=== PATIENT | female | born 1940 | race Asian ===

== ENCOUNTER 2017-04-02 16:36 | Inpatient (IN) | payer MEDICARE, OTHER ==
[~2017-04-02] VITALS: Ht 167.6 cm; Wt 51.3 kg
[~2017-04-02 16:36] MED LIST: ANAS1TAB7 PO; APIX2.5T PO; BUME1TAB17 PO; CALC-590 PO; DIGO-44 PO; FAMO20 PO; FURO20TA4 PO; METO50 PO; MULT-1259 PO; SIMV20TA6 PO
[2017-04-02 19:00] VITALS: BP 138/65
[2017-04-02] MEDS ORDERED: DOCUSATE SODIUM 283 MG/5 ML MINI-ENEMA PR PRN (20:00)
[2017-04-02] MEDS ORDERED: ACETAMINOPHEN 325 MG TABLET PO PRN (20:00)
[2017-04-02] MEDS ORDERED: IPRATROPIUM BROMIDE 0.5 MG/2.5 ML NEB SOLUTION NEB PRN (20:00)
[2017-04-02] MEDS ORDERED: ZOLPIDEM TARTRATE 5 MG TABLET PO PRN (20:00)
[2017-04-02] MEDS ORDERED: MAGNESIUM HYDROXIDE SUSPENSION 30 ML UDCUP PO PRN (20:00)
[2017-04-02] MEDS ORDERED: HYDROCODONE/ACETAMINOPHEN 5-325 MG TABLET PO PRN (20:00)
[2017-04-02] MEDS ORDERED: HEPARIN SODIUM,PORCINE 5,000 UNITS/ML VIAL IVP ONE (20:15)
[2017-04-02] MEDS ORDERED: HEPARIN SODIUM,PORCINE 5,000 UNITS/ML VIAL IVP PRN ×2 (20:15)
[2017-04-02] MEDS: DOCUSATE SODIUM 250 MG CAPSULE PO SCH (21:14)
[2017-04-02] MEDS: CALCIUM CARBONATE 500 MG CHEWABLE TABLET CHEW SCH (21:14)
[2017-04-02] MEDS: MULTIVITAMINS, THERAPEUTIC TABLET PO SCH (21:14)
[2017-04-02] MEDS: FAMOTIDINE 20 MG TABLET PO SCH (21:14)
[2017-04-02] MEDS: SIMVASTATIN 20 MG TABLET PO SCH (21:14)
[2017-04-02] MEDS: SENNA 187 MG TABLET PO SCH (21:21)
[2017-04-02 23:20] VITALS: BP 145/76
[2017-04-03] MEDS: HEPARIN SODIUM 25000 UNITS/D5W 250 ML IV PRN ×3 (00:35→10:37)
[2017-04-03 06:44] LABS: BASOPHILS # (AUTO) 0.03 K/uL (0.00-0.20); BASOPHILS % (AUTO) 0.6 % (0.0-2.0); EOSINOPHILS # (AUTO) 0.11 K/uL (0.00-0.70); EOSINOPHILS % (AUTO) 2.04 % (1.0-6.0); HEMATOCRIT 40.2 % (36-46); HEMOGLOBIN 13.2 g/dL (12.0-16.0); LYMPHOCYTES # (AUTO) 0.9 K/uL (1.0-4.8); LYMPHOCYTES % (AUTO) 16.8 % (22.0-44.0); MEAN CORPUSCULAR HEMOGLOBIN 31.6 pg (26.0-34.0); MEAN CORPUSCULAR HGB CONC 32.8 G/dL (31.0-37.0); MEAN CORPUSCULAR VOLUME 97 fL (80-100); MONOCYTES # (AUTO) 0.4 K/uL (0.1-1.0); MONOCYTES % (AUTO) 6.4 % (2.0-9.0); NEUTROPHILS % (AUTO) 74.2 % (40.0-70.0); PLATELET COUNT (AUTO) 103 K/uL (150-450); RED BLOOD CELL COUNT(AUTO) 4.16 MIL/uL (4.00-5.20); RED CELL DISTRIBUTION WIDTH 16.3 % (11.5-14.5)
[2017-04-03 07:02] LABS: ALANINE AMINOTRANSFERASE 28 U/L (12-78); ALBUMIN 2.1 g/dL (3.4-5.0); ALKALINE PHOSPHATASE 162 U/L (46-116); ANION GAP 2 mmol/L (8-16); ASPARTATE AMINOTRANSFERASE 36 U/L (15-37); BILIRUBIN,TOTAL 1.3 mg/dL (0.1-1.0); CALCIUM, TOTAL 8.7 mg/dL (8.8-10.5); CARBON DIOXIDE 34 mmol/L (22-29); CHLORIDE 107 mmol/L (98-107); CREATININE 0.78 mg/dL (0.60-1.30); GLOMERULAR FILTR. RATE CALC > 60 mL/min (>60); GLUCOSE,RANDOM 90 mg/dL (70-110); POTASSIUM 4.3 mmol/L (3.5-5.1); SODIUM SERUM 143 mmol/L (136-145); UREA NITROGEN, BLOOD 11 mg/dL (7-18)
[2017-04-03 07:56] VITALS: BP 132/76
[2017-04-03 08:06] LABS: APPEARANCE,URINE TURBID (CLEAR)
[2017-04-03 08:07] LABS: PH,URINE >=9.0 (5.0-8.0)
[2017-04-03 08:08] LABS: GLUCOSE, URINE (UA) NEGATIVE (NEGATIVE); OCCULT BLOOD,URINE LARGE (NEGATIVE); PROTEIN,URINE POS 1+ (NEGATIVE)
[2017-04-03 08:09] LABS: BILIRUBIN,URINE PRELIM. POSITIVE (NEGATIVE); KETONES,URINE TRACE mg/dL (NEGATIVE)
[2017-04-03 08:10] LABS: LEUKOCYTE ESTERASE ,URINE LARGE (NEGATIVE); NITRATE,URINE POSITIVE (NEGATIVE)
[2017-04-03 08:12] LABS: BACTERIA,URINE Many /HPF (None Seen); RBC,URINE >100 /HPF (0-2); SQUAMOUS EPITHELIAL CELL,UR Few /LPF (None Seen)
[2017-04-03] MEDS ORDERED: WARFARIN SODIUM 5 MG TABLET PO ONE (08:45)
[2017-04-03] MEDS: ASPIRIN 81 MG EC TABLET PO SCH (09:13)
[2017-04-03] MEDS: DIGOXIN 125 MCG TABLET PO SCH (09:14)
[2017-04-03] MEDS: DOCUSATE SODIUM 250 MG CAPSULE PO SCH ×2 (09:14→20:42)
[2017-04-03] MEDS: CALCIUM CARBONATE 500 MG CHEWABLE TABLET CHEW SCH ×3 (09:14→20:42)
[2017-04-03] MEDS: FAMOTIDINE 20 MG TABLET PO SCH ×2 (09:14→20:42)
[2017-04-03] MEDS: ONDANSETRON HCL 4 MG/2 ML VIAL IVP PRN (15:31)
[2017-04-03 17:28] VITALS: BP 157/70
[2017-04-03] MEDS: LEVOFLOXACIN 500 MG TABLET PO SCH (17:45)
[2017-04-03] MEDS: SENNA 187 MG TABLET PO SCH (20:42)
[2017-04-03] MEDS: MULTIVITAMINS, THERAPEUTIC TABLET PO SCH (20:42)
[2017-04-03] MEDS: SIMVASTATIN 20 MG TABLET PO SCH (20:43)
[2017-04-04 00:16] VITALS: BP 121/58
[2017-04-04 07:13] LABS: PROTHROMBIN TIME 21.2 SEC (9.4-11.6)
[2017-04-04 07:25] LABS: ANION GAP 5 mmol/L (8-16); CALCIUM, TOTAL 8.9 mg/dL (8.8-10.5); CARBON DIOXIDE 30 mmol/L (22-29); CHLORIDE 104 mmol/L (98-107); CREATININE 0.81 mg/dL (0.60-1.30); GLOMERULAR FILTR. RATE CALC > 60 mL/min (>60); GLUCOSE,RANDOM 90 mg/dL (70-110); POTASSIUM 4.5 mmol/L (3.5-5.1); SODIUM SERUM 139 mmol/L (136-145); UREA NITROGEN, BLOOD 13 mg/dL (7-18)
[2017-04-04 07:30] VITALS: BP 116/52
[2017-04-04 07:52] LABS: B-TYPE NATRIURETIC PEPTIDE 751 pg/mL (0-100)
[2017-04-04] MEDS: OXYGEN THERAPY IH SCH ×2 (08:00→20:00)
[2017-04-04 09:28] VITALS: BP 119/90
[2017-04-04] MEDS: FAMOTIDINE 20 MG TABLET PO SCH ×2 (09:31→20:21)
[2017-04-04] MEDS: DOCUSATE SODIUM 250 MG CAPSULE PO SCH ×2 (09:31→20:25)
[2017-04-04] MEDS: ASPIRIN 81 MG EC TABLET PO SCH (09:31)
[2017-04-04] MEDS: CALCIUM CARBONATE 500 MG CHEWABLE TABLET CHEW SCH ×3 (09:31→20:23)
[2017-04-04] MEDS: LEVOFLOXACIN 500 MG TABLET PO SCH (09:31)
[2017-04-04] MEDS: DIGOXIN 125 MCG TABLET PO SCH (09:31)
[2017-04-04] MEDS: ONDANSETRON HCL 4 MG/2 ML VIAL IVP PRN (11:34)
[2017-04-04] MEDS: HEPARIN SODIUM 25000 UNITS/D5W 250 ML IV PRN ×2 (13:02→19:38)
[2017-04-04 15:28] VITALS: BP 136/87
[2017-04-04] MEDS: SENNA 187 MG TABLET PO SCH (20:23)
[2017-04-04] MEDS: MULTIVITAMINS, THERAPEUTIC TABLET PO SCH (20:23)
[2017-04-04] MEDS: SIMVASTATIN 20 MG TABLET PO SCH (20:23)
[2017-04-04 23:30] VITALS: BP 119/59
[2017-04-05 07:53] VITALS: BP 129/72
[2017-04-05] MEDS: DIGOXIN 125 MCG TABLET PO SCH (08:02)
[2017-04-05] MEDS: CALCIUM CARBONATE 500 MG CHEWABLE TABLET CHEW SCH ×3 (08:02→22:08)
[2017-04-05] MEDS: LEVOFLOXACIN 500 MG TABLET PO SCH (08:02)
[2017-04-05] MEDS: OXYGEN THERAPY IH SCH ×2 (08:02→20:00)
[2017-04-05] MEDS: DOCUSATE SODIUM 250 MG CAPSULE PO SCH ×2 (08:03→20:46)
[2017-04-05] MEDS: FAMOTIDINE 20 MG TABLET PO SCH ×2 (08:03→20:46)
[2017-04-05] MEDS: ASPIRIN 81 MG EC TABLET PO SCH (08:03)
[2017-04-05 10:23] LABS: PROTHROMBIN TIME 48.8 SEC (9.4-11.6)
[2017-04-05] MEDS: ONDANSETRON HCL 4 MG/2 ML VIAL IVP PRN (10:51)
[2017-04-05 11:35] LABS: INR 4.6 (0.9-1.1)
[2017-04-05 17:03] VITALS: BP 126/70
[2017-04-05] MEDS: SENNA 187 MG TABLET PO SCH (20:46)
[2017-04-05] MEDS: SIMVASTATIN 20 MG TABLET PO SCH (20:46)
[2017-04-05] MEDS: MULTIVITAMINS, THERAPEUTIC TABLET PO SCH (20:47)
[2017-04-05] MEDS ORDERED: WARFARIN SODIUM 2 MG TABLET PO SCH (21:00)
[2017-04-06] MEDS ORDERED: 0.9% SODIUM CHLORIDE 10 ML SYRINGE IVP SCH
[2017-04-06 01:00] VITALS: BP 117/71
[2017-04-06 07:21] VITALS: BP 128/65
[2017-04-06] MEDS: OXYGEN THERAPY IH SCH ×2 (08:00→16:44)
[2017-04-06] MEDS: CALCIUM CARBONATE 500 MG CHEWABLE TABLET CHEW SCH ×3 (08:09→20:14)
[2017-04-06] MEDS: FAMOTIDINE 20 MG TABLET PO SCH ×2 (08:09→20:15)
[2017-04-06] MEDS: DIGOXIN 125 MCG TABLET PO SCH (08:09)
[2017-04-06] MEDS: DOCUSATE SODIUM 250 MG CAPSULE PO SCH ×2 (08:09→20:14)
[2017-04-06] MEDS: LEVOFLOXACIN 500 MG TABLET PO SCH (08:11)
[2017-04-06 10:15] LABS: INR 3.6 (0.9-1.1); PROTHROMBIN TIME 38.3 SEC (9.4-11.6)
[2017-04-06 16:35] VITALS: BP 122/62
[2017-04-06] MEDS: SENNA 187 MG TABLET PO SCH (20:14)
[2017-04-06] MEDS: MULTIVITAMINS, THERAPEUTIC TABLET PO SCH (20:14)
[2017-04-06] MEDS: SIMVASTATIN 20 MG TABLET PO SCH (20:15)
[2017-04-07] VITALS: BP 124/76
[2017-04-07 07:25] VITALS: BP 142/80
[2017-04-07] MEDS: ONDANSETRON HCL 4 MG TABLET PO PRN (07:41)
[2017-04-07] MEDS: OXYGEN THERAPY IH SCH ×2 (08:00→20:00)
[2017-04-07] MEDS: DOCUSATE SODIUM 250 MG CAPSULE PO SCH ×3 (09:00→20:19)
[2017-04-07] MEDS: CALCIUM CARBONATE 500 MG CHEWABLE TABLET CHEW SCH ×3 (09:13→20:19)
[2017-04-07] MEDS: FAMOTIDINE 20 MG TABLET PO SCH ×2 (09:13→20:19)
[2017-04-07] MEDS: DIGOXIN 125 MCG TABLET PO SCH (09:13)
[2017-04-07] MEDS: LEVOFLOXACIN 500 MG TABLET PO SCH (09:13)
[2017-04-07 09:31] LABS: INR 2.2 (0.9-1.1); PROTHROMBIN TIME 23.7 SEC (9.4-11.6)
[2017-04-07] MEDS: 0.9% SODIUM CHLORIDE 10 ML SYRINGE IVP SCH (16:31)
[2017-04-07 17:23] VITALS: BP 136/73
[2017-04-07] MEDS: SENNA 187 MG TABLET PO SCH (20:19)
[2017-04-07] MEDS: MULTIVITAMINS, THERAPEUTIC TABLET PO SCH (20:19)
[2017-04-07] MEDS: SIMVASTATIN 20 MG TABLET PO SCH (20:19)
[2017-04-08] MEDS: 0.9% SODIUM CHLORIDE 10 ML SYRINGE IVP SCH ×4 (00:03→23:20)
[2017-04-08 00:08] VITALS: BP 118/59
[2017-04-08] MEDS: OXYGEN THERAPY IH SCH ×2 (08:00→20:00)
[2017-04-08 08:50] VITALS: BP 119/93
[2017-04-08] MEDS: DOCUSATE SODIUM 250 MG CAPSULE PO SCH ×3 (08:52→21:03)
[2017-04-08] MEDS: FAMOTIDINE 20 MG TABLET PO SCH ×2 (08:52→21:03)
[2017-04-08] MEDS: DIGOXIN 125 MCG TABLET PO SCH (08:52)
[2017-04-08] MEDS: CALCIUM CARBONATE 500 MG CHEWABLE TABLET CHEW SCH ×3 (08:52→21:02)
[2017-04-08] MEDS: LEVOFLOXACIN 500 MG TABLET PO SCH (08:54)
[2017-04-08] MEDS: ONDANSETRON HCL 4 MG TABLET PO PRN (10:58)
[2017-04-08] MEDS ORDERED: *CLINICAL-WARFARIN SODIUM DOSING CLINICAL ONE (13:45)
[2017-04-08] MEDS ORDERED: WARFARIN SODIUM-INR 2.0-3.0-RX DOSING PER PROTOCOL PO PRN (14:45)
[2017-04-08 15:20] VITALS: BP 132/67
[2017-04-08] MEDS ORDERED: WARFARIN SODIUM 2.5 MG TABLET PO ONE (17:00)
[2017-04-08 20:00] VITALS: BP 125/58
[2017-04-08] MEDS: SENNA 187 MG TABLET PO SCH ×2 (21:00→21:02)
[2017-04-08] MEDS: MULTIVITAMINS, THERAPEUTIC TABLET PO SCH (21:02)
[2017-04-08] MEDS: SIMVASTATIN 20 MG TABLET PO SCH (21:03)
[2017-04-09 00:01] VITALS: BP 121/66
[2017-04-09 07:55] VITALS: BP 127/76
[2017-04-09] MEDS: OXYGEN THERAPY IH SCH ×2 (08:00→20:30)
[2017-04-09] MEDS: CALCIUM CARBONATE 500 MG CHEWABLE TABLET CHEW SCH ×3 (08:22→20:27)
[2017-04-09] MEDS: DOCUSATE SODIUM 250 MG CAPSULE PO SCH ×2 (08:22→10:00)
[2017-04-09] MEDS: FAMOTIDINE 20 MG TABLET PO SCH ×2 (08:22→09:00)
[2017-04-09] MEDS: DIGOXIN 125 MCG TABLET PO SCH (08:22)
[2017-04-09] MEDS: 0.9% SODIUM CHLORIDE 10 ML SYRINGE IVP SCH (08:23)
[2017-04-09 08:29] LABS: INR 1.8 (0.9-1.1); PROTHROMBIN TIME 18.9 SEC (9.4-11.6)
[2017-04-09 11:32] LABS: BASOPHILS # (AUTO) 0.03 K/uL (0.00-0.20); BASOPHILS % (AUTO) 0.5 % (0.0-2.0); EOSINOPHILS # (AUTO) 0.22 K/uL (0.00-0.70); EOSINOPHILS % (AUTO) 4.07 % (1.0-6.0); HEMATOCRIT 39.8 % (36-46); HEMOGLOBIN 13.3 g/dL (12.0-16.0); LYMPHOCYTES % (AUTO) 18.9 % (22.0-44.0); MEAN CORPUSCULAR HEMOGLOBIN 31.3 pg (26.0-34.0); MEAN CORPUSCULAR HGB CONC 33.4 G/dL (31.0-37.0); MEAN CORPUSCULAR VOLUME 94 fL (80-100); MONOCYTES # (AUTO) 0.6 K/uL (0.1-1.0); MONOCYTES % (AUTO) 11.2 % (2.0-9.0); NEUTROPHILS # (AUTO) 3.5 K/uL (1.8-7.7); NEUTROPHILS % (AUTO) 65.3 % (40.0-70.0); PLATELET COUNT (AUTO) 98 K/uL (150-450); RED BLOOD CELL COUNT(AUTO) 4.25 MIL/uL (4.00-5.20); RED CELL DISTRIBUTION WIDTH 16.8 % (11.5-14.5)
[2017-04-09 11:41] LABS: CHOL/HDL RATIO 1.9 (3.9-5.7)
[2017-04-09 15:30] LABS: APPEARANCE,URINE CLEAR (CLEAR); BILIRUBIN,URINE NEGATIVE (NEGATIVE); GLUCOSE, URINE (UA) NEGATIVE (NEGATIVE); KETONES,URINE NEGATIVE (NEGATIVE); LEUKOCYTE ESTERASE ,URINE SMALL (NEGATIVE); NITRATE,URINE NEGATIVE (NEGATIVE); OCCULT BLOOD,URINE NEGATIVE (NEGATIVE); PROTEIN,URINE NEGATIVE (NEGATIVE)
[2017-04-09 15:40] VITALS: BP 124/71
[2017-04-09] MEDS ORDERED: WARFARIN SODIUM 2.5 MG TABLET PO ONE (17:00)
[2017-04-09 17:05] LABS: BACTERIA,URINE Few /HPF (None Seen); RBC,URINE 0-2 /HPF (0-2); SQUAMOUS EPITHELIAL CELL,UR Few /LPF (None Seen)
[2017-04-09] MEDS: MULTIVITAMINS, THERAPEUTIC TABLET PO SCH (20:27)
[2017-04-09] MEDS: SIMVASTATIN 20 MG TABLET PO SCH (20:27)
[2017-04-09] MEDS: DICLOFENAC SODIUM 1% 100 GM GEL [2GM] TP SCH (20:27)
[2017-04-09] MEDS: SENNA 187 MG TABLET PO SCH (20:30)
[2017-04-10 00:51] VITALS: BP 123/64
[2017-04-10] MEDS: PANTOPRAZOLE SODIUM 40 MG DR TABLET PO SCH (05:56)
[2017-04-10 07:10] LABS: BASOPHILS % (AUTO) 0.3 % (0.0-2.0); EOSINOPHILS % (AUTO) 4.9 % (1.0-6.0); HEMATOCRIT 37.7 % (36-46); HEMOGLOBIN 12.6 g/dL (12.0-16.0); LYMPHOCYTES % (AUTO) 19.5 % (22.0-44.0); MEAN CORPUSCULAR HEMOGLOBIN 31.6 pg (26.0-34.0); MEAN CORPUSCULAR HGB CONC 33.5 G/dL (31.0-37.0); MEAN CORPUSCULAR VOLUME 95 fL (80-100); MONOCYTES # (AUTO) 0.6 K/uL (0.1-1.0); MONOCYTES % (AUTO) 11.6 % (2.0-9.0); NEUTROPHILS # (AUTO) 3.4 K/uL (1.8-7.7); NEUTROPHILS % (AUTO) 63.7 % (40.0-70.0); PLATELET COUNT (AUTO) 103 K/uL (150-450); RED BLOOD CELL COUNT(AUTO) 3.99 MIL/uL (4.00-5.20); RED CELL DISTRIBUTION WIDTH 17.3 % (11.5-14.5)
[2017-04-10 07:20] LABS: INR 2.3 (0.9-1.1); PROTHROMBIN TIME 24.3 SEC (9.4-11.6)
[2017-04-10 07:30] VITALS: BP 120/83
[2017-04-10] MEDS: OXYGEN THERAPY IH SCH ×2 (07:53→20:00)
[2017-04-10] MEDS: DICLOFENAC SODIUM 1% 100 GM GEL [2GM] TP SCH ×2 (08:02→20:08)
[2017-04-10] MEDS: CALCIUM CARBONATE 500 MG CHEWABLE TABLET CHEW SCH ×4 (08:03→20:10)
[2017-04-10] MEDS: DIGOXIN 125 MCG TABLET PO SCH (08:03)
[2017-04-10] MEDS: DOCUSATE SODIUM 250 MG CAPSULE PO SCH ×2 (08:03→20:10)
[2017-04-10] MEDS: CycloSPORINE 0.05% 0.4 ML OPHTHALMIC EMULSION OU SCH ×2 (12:54→20:08)
[2017-04-10 15:39] VITALS: BP 129/75
[2017-04-10] MEDS ORDERED: WARFARIN SODIUM 1 MG TABLET PO ONE (17:00)
[2017-04-10] MEDS: MULTIVITAMINS, THERAPEUTIC TABLET PO SCH (20:09)
[2017-04-10] MEDS: SIMVASTATIN 20 MG TABLET PO SCH (20:09)
[2017-04-10] MEDS: SENNA 187 MG TABLET PO SCH (20:11)
[2017-04-11] VITALS: BP 145/77
[2017-04-11] MEDS: PANTOPRAZOLE SODIUM 40 MG DR TABLET PO SCH (06:11)
[2017-04-11 06:46] LABS: INR 2.8 (0.9-1.1); PROTHROMBIN TIME 29.7 SEC (9.4-11.6)
[2017-04-11 07:10] VITALS: BP 122/86
[2017-04-11] MEDS: CALCIUM CARBONATE 500 MG CHEWABLE TABLET CHEW SCH ×3 (07:44→20:29)
[2017-04-11] MEDS: DOCUSATE SODIUM 250 MG CAPSULE PO SCH ×2 (07:44→20:29)
[2017-04-11] MEDS: CycloSPORINE 0.05% 0.4 ML OPHTHALMIC EMULSION OU SCH ×2 (07:45→20:30)
[2017-04-11] MEDS: OXYGEN THERAPY IH SCH ×2 (07:45→20:00)
[2017-04-11] MEDS: DIGOXIN 125 MCG TABLET PO SCH (07:45)
[2017-04-11] MEDS: DICLOFENAC SODIUM 1% 100 GM GEL [2GM] TP SCH ×2 (07:45→20:30)
[2017-04-11] MEDS: ONDANSETRON HCL 4 MG TABLET PO PRN (12:10)
[2017-04-11 15:10] VITALS: BP 130/72
[2017-04-11] MEDS: SIMVASTATIN 20 MG TABLET PO SCH (20:30)
[2017-04-11] MEDS: SENNA 187 MG TABLET PO SCH (20:30)
[2017-04-11] MEDS: MULTIVITAMINS, THERAPEUTIC TABLET PO SCH (20:30)
[2017-04-11 23:02] VITALS: BP 121/65
[2017-04-12] MEDS: PANTOPRAZOLE SODIUM 40 MG DR TABLET PO SCH (05:54)
[2017-04-12 07:41] VITALS: BP 118/57
[2017-04-12 07:53] LABS: INR 2.3 (0.9-1.1); PROTHROMBIN TIME 24.3 SEC (9.4-11.6)
[2017-04-12] MEDS: OXYGEN THERAPY IH SCH (08:00)
[2017-04-12] MEDS: DIGOXIN 125 MCG TABLET PO SCH (08:33)
[2017-04-12] MEDS: CALCIUM CARBONATE 500 MG CHEWABLE TABLET CHEW SCH ×3 (08:33→20:40)
[2017-04-12] MEDS: DICLOFENAC SODIUM 1% 100 GM GEL [2GM] TP SCH ×2 (08:34→20:41)
[2017-04-12] MEDS: DOCUSATE SODIUM 250 MG CAPSULE PO SCH ×2 (08:34→20:40)
[2017-04-12] MEDS: CycloSPORINE 0.05% 0.4 ML OPHTHALMIC EMULSION OU SCH ×2 (08:35→20:41)
[2017-04-12 16:07] VITALS: BP 115/58
[2017-04-12] MEDS ORDERED: WARFARIN SODIUM 1 MG TABLET PO ONE (17:00)
[2017-04-12] MEDS: SIMVASTATIN 20 MG TABLET PO SCH (20:40)
[2017-04-12] MEDS: MULTIVITAMINS, THERAPEUTIC TABLET PO SCH (20:40)
[2017-04-12] MEDS: SENNA 187 MG TABLET PO SCH (20:40)
[2017-04-13 00:37] VITALS: BP 130/75
[2017-04-13] MEDS: PANTOPRAZOLE SODIUM 40 MG DR TABLET PO SCH (06:03)
[2017-04-13 06:53] LABS: INR 1.9 (0.9-1.1); PROTHROMBIN TIME 20.1 SEC (9.4-11.6)
[2017-04-13 07:11] VITALS: BP 140/90
[2017-04-13] MEDS: CALCIUM CARBONATE 500 MG CHEWABLE TABLET CHEW SCH ×3 (08:02→20:48)
[2017-04-13] MEDS: CycloSPORINE 0.05% 0.4 ML OPHTHALMIC EMULSION OU SCH ×2 (08:02→20:49)
[2017-04-13] MEDS: DIGOXIN 125 MCG TABLET PO SCH (08:02)
[2017-04-13] MEDS: DICLOFENAC SODIUM 1% 100 GM GEL [2GM] TP SCH ×2 (08:02→20:50)
[2017-04-13] MEDS: DOCUSATE SODIUM 250 MG CAPSULE PO SCH ×2 (08:02→20:48)
[2017-04-13] MEDS: ONDANSETRON HCL 4 MG TABLET PO PRN (12:50)
[2017-04-13 15:08] VITALS: BP 140/89
[2017-04-13] MEDS ORDERED: WARFARIN SODIUM 1 MG TABLET PO SCH (17:00)
[2017-04-13] MEDS: SIMVASTATIN 20 MG TABLET PO SCH (20:48)
[2017-04-13] MEDS: SENNA 187 MG TABLET PO SCH (20:48)
[2017-04-13] MEDS: MULTIVITAMINS, THERAPEUTIC TABLET PO SCH (20:48)
[2017-04-14 04:30] VITALS: BP 133/80
[2017-04-14] MEDS: PANTOPRAZOLE SODIUM 40 MG DR TABLET PO SCH (05:45)
[2017-04-14 07:10] LABS: INR 1.7 (0.9-1.1); PROTHROMBIN TIME 17.4 SEC (9.4-11.6)
[2017-04-14] MEDS ORDERED: CYCL05OE OU (07:14)
[2017-04-14] MEDS ORDERED: PANT40TA25 PO (07:14)
[2017-04-14] MEDS ORDERED: DOCU250C91 PO (07:14)
[2017-04-14] MEDS ORDERED: WARF1 PO (07:14)
[2017-04-14] MEDS ORDERED: DICL2100G TP (07:14)
[2017-04-14 07:33] VITALS: BP 127/75
[2017-04-14] MEDS: DOCUSATE SODIUM 250 MG CAPSULE PO SCH ×2 (07:55→20:28)
[2017-04-14] MEDS: CALCIUM CARBONATE 500 MG CHEWABLE TABLET CHEW SCH ×3 (07:55→20:28)
[2017-04-14] MEDS: DICLOFENAC SODIUM 1% 100 GM GEL [2GM] TP SCH ×2 (07:55→20:29)
[2017-04-14] MEDS: DIGOXIN 125 MCG TABLET PO SCH (07:56)
[2017-04-14] MEDS: CycloSPORINE 0.05% 0.4 ML OPHTHALMIC EMULSION OU SCH ×2 (07:56→20:28)
[2017-04-14 15:50] VITALS: BP 130/73
[2017-04-14] MEDS ORDERED: WARFARIN SODIUM 1 MG TABLET PO SCH (17:00)
[2017-04-14] MEDS: MULTIVITAMINS, THERAPEUTIC TABLET PO SCH (20:28)
[2017-04-14] MEDS: SENNA 187 MG TABLET PO SCH (20:28)
[2017-04-14] MEDS: SIMVASTATIN 20 MG TABLET PO SCH (20:28)
[2017-04-15 01:00] VITALS: BP 131/81
[2017-04-15] MEDS: PANTOPRAZOLE SODIUM 40 MG DR TABLET PO SCH (06:07)
[2017-04-15 06:36] LABS: INR 1.7 (0.9-1.1); PROTHROMBIN TIME 17.3 SEC (9.4-11.6)
[2017-04-15 09:00] VITALS: BP 138/75
[2017-04-15] MEDS: DOCUSATE SODIUM 250 MG CAPSULE PO SCH (09:03)
[2017-04-15] MEDS: CycloSPORINE 0.05% 0.4 ML OPHTHALMIC EMULSION OU SCH (09:03)
[2017-04-15] MEDS: DICLOFENAC SODIUM 1% 100 GM GEL [2GM] TP SCH (09:03)
[2017-04-15] MEDS: DIGOXIN 125 MCG TABLET PO SCH (09:03)
[2017-04-15] MEDS: CALCIUM CARBONATE 500 MG CHEWABLE TABLET CHEW SCH (09:03)
[2017-04-15] MEDS ORDERED: CALC500T7 PO (09:45)
[2017-04-15] MEDS ORDERED: MV-M1TAB2 PO (09:46)
[2017-04-15] MEDS ORDERED: PANT40TA25 PO (09:46)
[2017-04-15] MEDS: ONDANSETRON HCL 4 MG TABLET PO PRN (11:03)
== END 2017-04-15 14:50 | disposition home health service (06) | DRG 56 ==
LOC: 2WR 19:15
PROVIDERS: ADMIT Physical Medicine & Rehabilitation; ATTEND Physical Medicine & Rehabilitation
DX: G81.94 Hemiplegia, unspecified affecting left nondominant side (principal); I63.431 Cerebral infarction due to embolism of right posterior cerebral artery; E46 Unspecified protein-calorie malnutrition; D69.6 Thrombocytopenia, unspecified; I48.2 Chronic atrial fibrillation; I50.32 Chronic diastolic (congestive) heart failure; I13.0 Hypertensive heart and chronic kidney disease with heart failure and stage 1 through stage 4 chronic kidney disease, or unspecified chronic kidney disease; N18.3 Chronic kidney disease, stage 3 (moderate); R13.10 Dysphagia, unspecified; N39.0 Urinary tract infection, site not specified; Z68.1 Body mass index [BMI] 19.9 or less, adult; E78.5 Hyperlipidemia, unspecified; R41.89 Other symptoms and signs involving cognitive functions and awareness; F03.90 Unspecified dementia, unspecified severity, without behavioral disturbance, psychotic disturbance, mood disturbance, and anxiety; B96.4 Proteus (mirabilis) (morganii) as the cause of diseases classified elsewhere; K21.9 Gastro-esophageal reflux disease without esophagitis; Z79.01 Long term (current) use of anticoagulants; Z79.82 Long term (current) use of aspirin; Z85.3 Personal history of malignant neoplasm of breast; Z88.8 Allergy status to other drugs, medicaments and biological substances; Z79.899 Other long term (current) drug therapy
CPT/HCPCS: 83735; 87081; 87086; 92507; 92508; 92523; 93005; 93308; 97110; 97112; 97116; 97163; 97166; 97530; 97535; 99366; J1644; J2405; Q0162